=== PATIENT | female | born 1970 | race Caucasian/White ===

== ENCOUNTER → 2016-09-28 | Outpatient (CLI) | payer OTHER ==
[~2016-09-28] MED LIST: FERR325T3 PO; FURO20TA2 PO; OMEP40CA2 PO; PARO5TAB PO; TRAZO50TA PO
[2016-09-28 14:45] LABS: FERRITIN 4 NG/ML (8-252)
== END ==
LOC: M LAB 14:03
PROVIDERS: ATTEND Physician Assistant
DX: D50.9 Iron deficiency anemia, unspecified (principal)

== ENCOUNTER → 2016-09-29 | Outpatient (REF) | payer OTHER ==
[2016-09-29 21:03] LABS: MEAN CORPUSCULAR HGB CONC 32.4 g/dl (32.0-36.5); MEAN CORPUSCULAR VOLUME 83.2 fl (80.0-96.0); RED CELL DISTRIBUTION WIDTH 14.7 % (11.5-14.5); WHITE BLOOD COUNT 5.2 K/mm3 (4.0-10.0)
[2016-10-02 00:06] LABS: Lyme Disease IgG/IgM Antibodie <0.91 ISR (0.00-0.90); Lyme Disease IgM Ab Quantitati <0.80 index (0.00-0.79)
== END ==
LOC: M SFHCLERA 15:44
PROVIDERS: ATTEND Physician Assistant
DX: M25.50 Pain in unspecified joint (principal); D50.9 Iron deficiency anemia, unspecified; E66.9 Obesity, unspecified

== ENCOUNTER → 2016-11-14 | Outpatient (REF) | payer OTHER | LOC: M SFHCLERA 17:15 | PROVIDERS: ATTEND Nurse Practitioner Family | DX: R10.9 Unspecified abdominal pain (principal) ==

== ENCOUNTER → 2016-12-09 | Outpatient (CLI) | payer OTHER ==
--- NOTE | 2016-12-09 14:53 | REP ---
LUMBAR SPINE, FIVE VIEWS: HISTORY: Sciatica. COMPARISON: 09/21/2005 There is no acute fracture or subluxation. The L3-4 through L5-S1 intervertebral discs are decreased in height consistent with disc degeneration. Osteophytes are present throughout the lumbar spine. There is narrowing of the L5-S1 facet joints. IMPRESSION: Degenerative changes as described above. Signed by Dontrell Hugo MD 12/09/2016 02:59 P
== END ==
LOC: M LRY 14:17
PROVIDERS: ATTEND Physician Assistant
DX: M54.41 Lumbago with sciatica, right side (principal)

== ENCOUNTER → 2016-12-20 | Outpatient (CLI) | payer OTHER ==
--- NOTE | 2016-12-20 14:56 | REP ---
MRI RIGHT SHOULDER WITH AND WITHOUT CONTRAST: TECHNIQUE: Axial T2, gradient echo, T2 fat sat, coronal T1, T2 fat sat, sagittal T2 fat sat, post IV gadolinium axial and coronal T1 fat sat with the intravenous administration of 18 mL gadolinium. The palpable abnormality is marked with skin markers. At the site of the reported palpable abnormality is a lobulated fat-containing mass consistent with a lipoma. There is no abnormal suspicious internal signal or enhancement. The lipoma measures 7. 4 x 4.9 x 5.0 cm. Adjacent soft tissue structures are unremarkable. The lipoma is along the posterolateral deltoid muscle. There is no invasion of the muscle. IMPRESSION: Lipoma along the posterolateral deltoid muscle as discussed in detail above with no suspicious characteristics. Signed by Taiwo Do MD 12/20/2016 04:45 P
== END ==
LOC: M RAD 10:34
PROVIDERS: ATTEND Surgery
DX: D17.30 Benign lipomatous neoplasm of skin and subcutaneous tissue of unspecified sites (principal)

== ENCOUNTER → 2017-01-25 | Day surgery (SDC) | payer OTHER ==
[~2017-01-25] VITALS: Ht 170.2 cm; Wt 99.8 kg
[~2017-01-25] MED LIST changes: +HYDROmorphone HCL 1 MG/ML SYRINGE (J1170) IV PRN; +KETOROLAC 60 MG/2 ML VIAL (J1885) As Ordered ONE; +LIDOCAINE 2% INJ 100 MG/5 ML SDV (FOR ANES.) As Ordered ONE; +LR 1,000 ML IV SCH; +METOCLOPRAMIDE INJ 10MG/2ML VIAL (J2765) As Ordered ONE; +MIDAZOLAM INJ 2 MG/2 ML VIAL (J2250) As Ordered ONE; +NORCO, ANEXSIA 5/325MG TABLET (HYDROcodone/ACETAMINOPHEN) PO PRN; +ONDA4TAB6; +ONDANSETRON 4MG/2ML VIAL (J2405) As Ordered ONE; +ONDANSETRON 4MG/2ML VIAL (J2405) IV PRN; +PROPOFOL 200 MG/20 ML VIAL As Ordered ONE; +TRAZ50TA4 PO; +ceFAZolin SOD 1 GM in D5W MINI-BAG PLUS 50 ML IV ONE; +fentaNYL 100 MCG/2 ML INJECTION (J3010) As Ordered ONE; +fentaNYL 100 MCG/2 ML INJECTION (J3010) IV PRN
[2017-01-25] MEDS: BUPIVACAINE/EPIN 0.25% 30 ML VIAL As Ordered ONE ×4 (08:41→09:07)
--- NOTE | 2017-01-25 09:22 | RO ---
DATE OF PROCEDURE: 01/25/2017 PREOPERATIVE DIAGNOSIS: Right upper arm lipoma. POSTOPERATIVE DIAGNOSIS: Right upper arm lipoma (multilobulated). PROCEDURE: Excision of large right upper arm lipoma (10 x 8 cm). SURGEON: Dr. Khadar Canseco AIRLINE RADIO OPERATOR: ANESTHESIA: Intravenous (IV) sedation plus local. ESTIMATED BLOOD LOSS: Minimal. FLUIDS: Crystalloid. DESCRIPTION OF PROCEDURE: Brief procedure summary: The patient was brought to the operating room and was given IV sedation and was prepped and draped in the usual sterile fashion. Next, a local was infiltrated around the area, and then a longitudinal incision was made over the top of the lipoma. Electrocautery was used to cut through skin and subcutaneous tissue down to the lipoma itself. One of the portions of the multilobulated lipoma was able to be accessed at this time, and this lower portion was delivered up into the wound, but then a the deeper portion heading towards the muscle was also then encountered, and this was dissected off surrounding structures using some minimal blunt dissection. Electrocautery was used to cut down the loose areolar tissue in this area. There was some minimal oozing from small bridging veins that were controlled with electrocautery, but otherwise a good hemostasis was achieved. The lipoma was removed in its entirety. No evidence of residual lipoma was appreciated in the bed of the dissection. The area was copiously irrigated until clear. Dash layer was closed with 3-0 Vicryl, and 3-0 Vicryl was used to close the dermis, and 4-0 Vicryl was used to approximate the skin. Steri-Strips and a dry sterile dressing was applied. The patient was awakened, extubated, brought to the recovery room awake, alert, and hemodynamically stable.
[2017-01-25 10:00] VITALS: BP 101/66
== END | disposition home or self-care (01) ==
LOC: M SDC 06:52
PROVIDERS: ATTEND Surgery
DX: D17.21 Benign lipomatous neoplasm of skin and subcutaneous tissue of right arm (principal); M54.9 Dorsalgia, unspecified; K21.9 Gastro-esophageal reflux disease without esophagitis; D64.9 Anemia, unspecified; F41.9 Anxiety disorder, unspecified; F32.9 Major depressive disorder, single episode, unspecified; Z98.84 Bariatric surgery status; Z90.710 Acquired absence of both cervix and uterus; Z87.891 Personal history of nicotine dependence; Z79.899 Other long term (current) drug therapy

== ENCOUNTER → 2017-03-25 | Outpatient (REF) | payer OTHER ==
[~2017-03-25] MED LIST changes: -HYDROmorphone HCL 1 MG/ML SYRINGE (J1170) IV PRN; -KETOROLAC 60 MG/2 ML VIAL (J1885) As Ordered ONE; -LIDOCAINE 2% INJ 100 MG/5 ML SDV (FOR ANES.) As Ordered ONE; -LR 1,000 ML IV SCH; -METOCLOPRAMIDE INJ 10MG/2ML VIAL (J2765) As Ordered ONE; -MIDAZOLAM INJ 2 MG/2 ML VIAL (J2250) As Ordered ONE; -NORCO, ANEXSIA 5/325MG TABLET (HYDROcodone/ACETAMINOPHEN) PO PRN; +NORCOTAB PO; -ONDANSETRON 4MG/2ML VIAL (J2405) As Ordered ONE; -ONDANSETRON 4MG/2ML VIAL (J2405) IV PRN; -PROPOFOL 200 MG/20 ML VIAL As Ordered ONE; +TOPA50TA8 PO; +TRAZ50TA11 PO; -TRAZ50TA4 PO; -ceFAZolin SOD 1 GM in D5W MINI-BAG PLUS 50 ML IV ONE; -fentaNYL 100 MCG/2 ML INJECTION (J3010) As Ordered ONE; -fentaNYL 100 MCG/2 ML INJECTION (J3010) IV PRN
== END ==
LOC: M SFHCLERA 14:27
PROVIDERS: ATTEND Nurse Practitioner Family
DX: N39.0 Urinary tract infection, site not specified (principal); R30.0 Dysuria; J32.9 Chronic sinusitis, unspecified

== ENCOUNTER 2017-04-28 14:49 | Emergency (ER) | payer OTHER ==
[~2017-04-28] VITALS: Ht 170.2 cm; Wt 100.0 kg
[~2017-04-28 14:49] MED LIST changes: -NORCOTAB PO; -TOPA50TA8 PO
[2017-04-28] MEDS ORDERED: TOPA50TA8 PO (15:05)
[2017-04-28] MEDS ORDERED: NORCO, ANEXSIA 5/325MG TABLET (HYDROcodone/ACETAMINOPHEN) PO ONE (17:00)
--- NOTE | 2017-04-28 17:36 | REP ---
Right ankle four views: Comparison is 12/25/2010. There is soft tissue edema laterally. There is no fracture or dislocation. The mortise is symmetric. There is a calcaneal plantar spur, unchanged. Signed by Taiwo Vee MD 04/28/2017 05:27 P
--- NOTE | 2017-04-28 17:37 | REP ---
Left knee six views: There are no comparisons. There is tricompartment osteoarthritis. There is no fracture or dislocation. There is no hemarthrosis. No calcifications or foreign bodies. Signed by Taiwo Vee MD 04/28/2017 05:28 P
[2017-04-28 17:43] VITALS: BP 104/76
[2017-04-28] MEDS ORDERED: NORCOTAB PO (17:47)
== END 2017-04-28 18:37 | disposition home or self-care (01) ==
LOC: M ED 14:49
DX: S93.401A Sprain of unspecified ligament of right ankle, initial encounter (principal); S83.92XA Sprain of unspecified site of left knee, initial encounter; Z98.84 Bariatric surgery status; X50.1XXA Overexertion from prolonged static or awkward postures, initial encounter; Y92.89 Other specified places as the place of occurrence of the external cause; Y93.01 Activity, walking, marching and hiking; Y99.9 Unspecified external cause status

== ENCOUNTER 2017-09-02 08:51 | Emergency (ER) | payer OTHER ==
[~2017-09-02] VITALS: Ht 170.2 cm; Wt 101.8 kg
[~2017-09-02 08:51] MED LIST changes: +NORCOTAB PO; +TOPA50TA8 PO
[2017-09-02] MEDS ORDERED: KETOROLAC 60 MG/2 ML VIAL (J1885) IM ONE (09:30)
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
[2017-09-02 10:59] VITALS: BP 119/81
[2017-09-02] MEDS ORDERED: CYCL10TA PO (11:05)
== END 2017-09-02 11:07 | disposition home or self-care (01) ==
LOC: M ED 08:51
DX: M17.12 Unilateral primary osteoarthritis, left knee (principal); S63.501A Unspecified sprain of right wrist, initial encounter; W00.0XXA Fall on same level due to ice and snow, initial encounter; Y92.89 Other specified places as the place of occurrence of the external cause; Y93.89 Activity, other specified; Y99.0 Civilian activity done for income or pay; M47.897 Other spondylosis, lumbosacral region; D64.9 Anemia, unspecified; R60.0 Localized edema
CPT/HCPCS: 72110; 73110; 73564; 96372; 99283; J1885

== ENCOUNTER → 2018-07-14 | Outpatient (REF) | payer OTHER | LOC: M SFHCSACK 10:54 | DX: E61.1 Iron deficiency (principal); Z13.220 Encounter for screening for lipoid disorders; Z13.29 Encounter for screening for other suspected endocrine disorder; Z13.21 Encounter for screening for nutritional disorder; E53.8 Deficiency of other specified B group vitamins ==

== ENCOUNTER → 2018-07-17 | Outpatient (REF) | payer OTHER ==
[2018-07-17 15:17] LABS: BASO % 0.8 % (0.0-1.0); EOS # 0.2 10^3/uL (0.0-0.50); EOS % 3.4 % (0.0-3.0); HEMATOCRIT 44.9 % (36.0-47.0); HEMOGLOBIN 14.6 g/dl (12.0-15.5); IMMATURE GRANULOCYTE % 0.2 % (0-3.0); LYMPH # 1.6 10^3/uL (1.5-4.5); LYMPH % 30.2 % (24.0-44.0); MEAN CORPUSCULAR HEMOGLOBIN 30.1 pg (27.0-33.0); MEAN CORPUSCULAR HGB CONC 32.5 g/dl (32.0-36.5); MEAN CORPUSCULAR VOLUME 92.6 fl (80.0-96.0); MONO # 0.3 10^3/uL (0.0-0.8); MONO % 5.1 % (0.0-5.0); NEUTROPHILS # 3.2 10^3/uL (1.8-7.7); NEUTROPHILS % 60.3 % (36.0-66.0); PLATELET COUNT, AUTOMATED 198 10^3/uL (150-450); RED BLOOD COUNT 4.85 10^6/uL (4.00-5.40); RED CELL DISTRIBUTION WIDTH 13.5 % (11.5-14.5); WHITE BLOOD COUNT 5.3 10^3/uL (4.0-10.0)
[2018-07-17 15:30] LABS: ALBUMIN 3.7 GM/DL (3.2-5.2); ALBUMIN/GLOBULIN RATIO 1.12 (1.00-1.93); ALKALINE PHOSPHATASE 73 U/L (45-117); ALT/SGPT 24 U/L (12-78); ANION GAP 7 MEQ/L (8-16); AST/SGOT 26 U/L (7-37); BILIRUBIN,TOTAL 0.7 MG/DL (0.2-1.0); BLOOD UREA NITROGEN 11 MG/DL (7-18); CALCIUM LEVEL 8.8 MG/DL (8.5-10.1); CARBON DIOXIDE LEVEL 27 MEQ/L (21-32); CHLORIDE LEVEL 106 MEQ/L (98-107); CHOLESTEROL LEVEL 177 MG/DL (<200); CHOLESTEROL RISK RATIO 3.277 (<5); FERRITIN 7 NG/ML (8-252); FREE T4 0.98 NG/DL (0.76-1.46); GLOMERULAR FILTRATION RATE > 60.0 (>58); GLUCOSE, FASTING 80 MG/DL (70-100); HDL CHOLESTEROL 54 MG/DL (>40); IRON (FE) 96 UG/DL (50-170); LDL CHOLESTEROL 107 MG/DL (<100); NON-HDL-C 123 MG/DL; POTASSIUM SERUM 4.3 MEQ/L (3.5-5.1); SODIUM LEVEL 140 MEQ/L (136-145); TOTAL IRON BINDING CAPACITY 458 UG/DL (250-450); TRIGLYCERIDES LEVEL 78 MG/DL (<150)
[2018-07-17 15:58] LABS: TOTAL 25(OH) VITAMIN D 9.3 NG/ML (30.0-100.0)
== END ==
LOC: M SFHCSACK 09:58
DX: E61.1 Iron deficiency (principal); Z13.220 Encounter for screening for lipoid disorders; Z13.29 Encounter for screening for other suspected endocrine disorder; Z13.21 Encounter for screening for nutritional disorder; E53.8 Deficiency of other specified B group vitamins
CPT/HCPCS: 83550

== ENCOUNTER → 2019-03-12 | Outpatient (CLI) | payer OTHER ==
[~2019-03-12] MED LIST changes: +CYCL10TA PO; +HYDR-3715 PO; +HYDR-643; +MIRT1TAB; -NORCOTAB PO; -OMEP40CA2 PO; +OMEP40CA97 PO; +SERT50TA29; +TRAZ-252 PO; +TRAZ1TAB6 PO; -TRAZ50TA11 PO; -TRAZO50TA PO
[2019-03-12 15:38] LABS: BASO % 0.5 % (0.0-1.0); EOS # 0.1 10^3/uL (0.0-0.50); EOS % 2.1 % (0.0-3.0); HEMATOCRIT 43.5 % (36.0-47.0); HEMOGLOBIN 14.1 g/dl (12.0-15.5); LYMPH # 1.8 10^3/uL (1.5-4.5); LYMPH % 28.8 % (24.0-44.0); MEAN CORPUSCULAR HEMOGLOBIN 29.9 pg (27.0-33.0); MEAN CORPUSCULAR HGB CONC 32.4 g/dl (32.0-36.5); MEAN CORPUSCULAR VOLUME 92.2 fl (80.0-96.0); MONO # 0.3 10^3/uL (0.0-0.8); MONO % 4.6 % (0.0-5.0); NEUTROPHILS # 3.9 10^3/uL (1.8-7.7); NEUTROPHILS % 63.7 % (36.0-66.0); PLATELET COUNT, AUTOMATED 226 10^3/uL (150-450); RED BLOOD COUNT 4.72 10^6/uL (4.00-5.40); WHITE BLOOD COUNT 6.1 10^3/uL (4.0-10.0)
[2019-03-12 15:58] LABS: ALBUMIN 3.8 GM/DL (3.2-5.2); ALT/SGPT 24 U/L (12-78); BILIRUBIN,TOTAL 0.4 MG/DL (0.2-1.0); BLOOD UREA NITROGEN 8 MG/DL (7-18); CALCIUM LEVEL 9.2 MG/DL (8.5-10.1); CARBON DIOXIDE LEVEL 25 MEQ/L (21-32); CHLORIDE LEVEL 107 MEQ/L (98-107); CREATININE FOR GFR 0.67 MG/DL (0.55-1.30); FERRITIN 7 NG/ML (8-252); GLOMERULAR FILTRATION RATE > 60.0 (>51); GLUCOSE, FASTING 84 MG/DL (70-100); IRON (FE) 33 UG/DL (50-170); PERCENT SATURATION 7.6 % (13.2-45.0); POTASSIUM SERUM 4.1 MEQ/L (3.5-5.1); SODIUM LEVEL 140 MEQ/L (136-145); TOTAL IRON BINDING CAPACITY 436 UG/DL (250-450); TOTAL PROTEIN 7.2 GM/DL (6.4-8.2)
[2019-03-12 16:13] LABS: TOTAL 25(OH) VITAMIN D 26.3 NG/ML (30.0-100.0)
[2019-03-12 16:15] LABS: VITAMIN B12 LEVEL 180 PG/ML (247-911)
== END ==
LOC: M LAB 14:11
PROVIDERS: ATTEND Physician Assistant
DX: E61.1 Iron deficiency (principal); E55.9 Vitamin D deficiency, unspecified; E53.8 Deficiency of other specified B group vitamins

== ENCOUNTER → 2019-07-09 | Outpatient (REF) | payer OTHER ==
[~2019-07-09] MED LIST changes: -HYDR-643; -MIRT1TAB; -SERT50TA29
== END ==
LOC: M LAB REF 13:10
PROVIDERS: ATTEND Plastic Surgery Surgery of the Hand
DX: D49.2 Neoplasm of unspecified behavior of bone, soft tissue, and skin (principal)

== ENCOUNTER 2019-08-17 07:37 | Emergency (ER) | payer OTHER ==
[~2019-08-17] VITALS: Ht 170.2 cm; Wt 95.2 kg
[2019-08-17] MEDS ORDERED: SERT50TA29 (07:45)
[2019-08-17] MEDS ORDERED: HYDR-643 (07:45)
[2019-08-17] MEDS ORDERED: MIRT1TAB (07:45)
[2019-08-17] MEDS ORDERED: KETOROLAC 60 MG/2 ML VIAL (J1885) IM ONE (08:30)
[2019-08-17] MEDS ORDERED: ACETAMINOPHEN 325 MG TAB PO ONE (08:30)
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
[2019-08-17 11:16] VITALS: BP 117/70
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
== END 2019-08-17 11:19 | disposition home or self-care (01) ==
LOC: M ED 07:37
DX: S63.521A Sprain of radiocarpal joint of right wrist, initial encounter (principal); W00.0XXA Fall on same level due to ice and snow, initial encounter; Z79.899 Other long term (current) drug therapy; Y92.9 Unspecified place or not applicable; Y93.9 Activity, unspecified; Z87.891 Personal history of nicotine dependence
CPT/HCPCS: 73110; 73200; 96372; 99284; J1885

== ENCOUNTER → 2019-08-22 | Outpatient (REF) | payer OTHER ==
[~2019-08-22] MED LIST changes: +HYDR-643; +MIRT1TAB; +SERT50TA29
== END ==
LOC: M LAB REF 18:39
PROVIDERS: ATTEND Dermatology
DX: C44.91 Basal cell carcinoma of skin, unspecified (principal)

== ENCOUNTER → 2019-09-25 | Outpatient (REF) | payer OTHER | LOC: M LAB REF 09:24 | PROVIDERS: ATTEND Dermatology | DX: D23.5 Other benign neoplasm of skin of trunk (principal) ==

== ENCOUNTER → 2020-07-18 | Outpatient (CLI) | payer SELFPAY ==
[~2020-07-18] MED LIST changes: +CYCL-707 PO; -CYCL10TA PO
== END ==
LOC: M LABSMTC 09:41
PROVIDERS: ATTEND Pediatrics
DX: Z20.828 Contact with and (suspected) exposure to other viral communicable diseases (principal)

== ENCOUNTER 2020-08-19 17:18 | Emergency (ER) | payer OTHER ==
[~2020-08-19] VITALS: Ht 167.6 cm; Wt 99.2 kg
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
[2020-08-19 19:15] VITALS: BP 127/70
== END 2020-08-19 19:21 | disposition home or self-care (01) ==
LOC: M ED 17:18
DX: S16.1XXA Strain of muscle, fascia and tendon at neck level, initial encounter (principal); V49.49XA Driver injured in collision with other motor vehicles in traffic accident, initial encounter; Y92.410 Unspecified street and highway as the place of occurrence of the external cause; M25.532 Pain in left wrist; H92.03 Otalgia, bilateral; H93.19 Tinnitus, unspecified ear; F33.9 Major depressive disorder, recurrent, unspecified; F41.9 Anxiety disorder, unspecified; D64.9 Anemia, unspecified; Z98.84 Bariatric surgery status

== ENCOUNTER → 2020-10-02 | Outpatient (REF) | payer SELFPAY | LOC: M LABSMTC 10-01 10:32 → EDSTATUS 10-01 10:50 → M LABSMTC 09:05 | PROVIDERS: ATTEND Family Medicine | DX: Z20.822 Contact with and (suspected) exposure to COVID-19 (principal) ==

== ENCOUNTER → 2020-10-29 | Outpatient (REF) | LOC: M LABSMTC 13:17 | PROVIDERS: ATTEND Pediatrics | DX: Z11.52 Encounter for screening for COVID-19 (principal) ==